=== PATIENT | female | born 1945 | race African-American/Black ===

== ENCOUNTER 2022-01-26 17:14 | Inpatient (IN) ==
[2022-01-26 17:36] LABS: Basophils % 0.5 % (0.0-0.8); Eosinophils # 0.1 10*3/uL (0.0-0.87); Eosinophils % 1.2 % (0.00-10.9); Hematocrit 38.4 VOL% (35.7-47.0); Hemoglobin 12.8 GM/DL (12.0-16.0); Immature Granulocytes % 0.3 %; Immature Granulocytes Absolute 0.02 #; Lymphocytes # 1.7 10*3/uL (1.4-4.0); Lymphocytes % 27.7 % (21.3-54.2); Mean Corpuscular HGB Conc 33.3 GM/DL (32-36); Mean Corpuscular Volume 88.1 FL (87-102); Mean Platelet Volume 9.9 FL (9.6-12.0); Monocytes # 0.5 10*3/uL (0.11-0.8); Monocytes % 8.5 % (1.7-12.7); Neutrophils % 61.8 % (38.7-73.9); Platelet Count 147 T/CUMM (130-400); Red Blood Count 4.36 MC/CUMM (3.8-5.5); Red Cell Distribution Width 13.3 % (9.3-17.3)
[2022-01-26 17:59] LABS: Alanine Aminotransferase 25 U/L (13-56); Albumin 3.8 G/DL (3.4-5.0); Alkaline Phosphatase 81 U/L (45-117); Aspartate Amino Transferase 36 U/L (0-37); Bilirubin,Total < 0.39 MG/DL (0.20-1.00); Blood Urea Nitrogen 19 MG/DL (7-18); Calcium 9.4 MG/DL (8.5-10.1); Carbon Dioxide 22 MMOL/L (21-32); Chloride 108 MMOL/L (98-107); Glucose 221 MG/DL (74-106); Osmolality,Calculated 283.7 MOS/KG (273-304); Potassium 3.7 MMOL/L (3.5-5.1); Sodium 138 MMOL/L (136-145); Total Protein 8.5 G/DL (6.4-8.2)
[2022-01-26] MEDS ORDERED: ASPIRIN EC 325 MG TABLET PO STA (18:36)
[2022-01-26] MEDS ORDERED: ENOXAPARIN 100 MG/ML SYRINGE SUBCUT STA (18:36)
[2022-01-26 19:55] LABS: Platelet Estimate Normal
[2022-01-27] MEDS ORDERED: ONDANSETRON 4 MG/2 ML VIAL IV PRN (00:22)
[2022-01-27] MEDS ORDERED: ACETAMINOPHEN 325 MG TABLET PO PRN (00:22)
[2022-01-27] MEDS ORDERED: MORPHINE 2 MG/1 ML SYRINGE IV PRN (00:22)
[2022-01-27] MEDS: SODIUM CHLORIDE 0.9% 1,000 ML IV SCH ×2 (01:23→12:56)
[2022-01-27] MEDS: NITROGLYCERIN 2% OINT 1 INCH/GM PACK TOP SCH ×3 (01:33→12:20)
[2022-01-27] MEDS: DOCUSATE SODIUM 100 MG CAPSULE PO SCH ×3 (01:33→20:39)
[2022-01-27 04:26] LABS: Basophils % 0.4 % (0.0-0.8); Eosinophils # 0.1 10*3/uL (0.0-0.87); Eosinophils % 0.9 % (0.00-10.9); Hematocrit 36.7 VOL% (35.7-47.0); Hemoglobin 12.1 GM/DL (12.0-16.0); Immature Granulocytes % 0.3 %; Immature Granulocytes Absolute 0.02 #; Lymphocytes # 2.8 10*3/uL (1.4-4.0); Mean Corpuscular Volume 87.6 FL (87-102); Mean Platelet Volume 10.6 FL (9.6-12.0); Monocytes # 0.8 10*3/uL (0.11-0.8); Monocytes % 11.1 % (1.7-12.7); Neutrophils % 46.3 % (38.7-73.9); Platelet Count 132 T/CUMM (130-400); Red Blood Count 4.19 MC/CUMM (3.8-5.5); Red Cell Distribution Width 13.4 % (9.3-17.3); White Blood Count 6.8 T/CUMM (4-12)
[2022-01-27 04:43] LABS: Alanine Aminotransferase 23 U/L (13-56); Albumin 3.2 G/DL (3.4-5.0); Alkaline Phosphatase 63 U/L (45-117); Aspartate Amino Transferase 28 U/L (0-37); Bilirubin,Total < 0.39 MG/DL (0.20-1.00); Blood Urea Nitrogen 15 MG/DL (7-18); Calcium 9.4 MG/DL (8.5-10.1); Carbon Dioxide 23 MMOL/L (21-32); Chloride 110 MMOL/L (98-107); Cholesterol 146 MG/DL (50-200); Glucose 100 MG/DL (74-106); HDL Cholesterol 69 MG/DL (40-60); Osmolality,Calculated 281.3 MOS/KG (273-304); Potassium 3.7 MMOL/L (3.5-5.1); Risk Ratio 2.12; Sodium 141 MMOL/L (136-145); Total Protein 7.3 G/DL (6.4-8.2); Triglycerides 129 MG/DL (2-150); VLDL Cholesterol 25.8 MG/DL
[2022-01-27] MEDS ORDERED: GLUCAGON 1 MG VIAL IM PRN (07:36)
[2022-01-27] MEDS ORDERED: DEXTROSE 10% 250 ML BAG IV PRN (07:36)
[2022-01-27] MEDS: LORATADINE 10 MG TABLET PO SCH (08:07)
[2022-01-27] MEDS: FENOFIBRATE 160 MG TABLET PO SCH (08:07)
[2022-01-27] MEDS: PANTOPRAZOLE 40 MG VIAL IV SCH (08:42)
[2022-01-27] MEDS: METOPROLOL TARTRATE 25 MG TABLET PO SCH ×2 (08:43→20:39)
[2022-01-27] MEDS ORDERED: DIAZEPAM 5 MG TABLET PO ONE (09:00)
[2022-01-27] MEDS ORDERED: ASPIRIN EC 325 MG TABLET PO SCH (09:00)
[2022-01-27] MEDS ORDERED: diphenhydrAMINE CAP 25 MG CAPSULE PO ONE (09:00)
[2022-01-27] MEDS ORDERED: ENOXAPARIN 80 MG/0.8 ML SYRINGE SUBCUT SCH (09:00)
[2022-01-27] MEDS: INSULIN LISPRO 100 UNIT/ML SUBCUT SCH ×3 (10:55→20:37)
[2022-01-27] MEDS ORDERED: HEPARIN/NACL 0.9% 2 UNITS/ML 2,000 UNIT/1,000 ML BAG IV ONE (11:01)
[2022-01-27] MEDS ORDERED: fentaNYL 100 MCG/2 ML VIAL ONE (11:20)
[2022-01-27] MEDS ORDERED: MIDAZOLAM 2 MG/2 ML VIAL ONE (11:20)
[2022-01-27] MEDS ORDERED: ACETAMINOPHEN/CODEINE 300-30 MG TABLET PO PRN (11:54)
[2022-01-27] MEDS ORDERED: NITROGLYCERIN SL 0.4 MG TABLET SL PRN (11:54)
[2022-01-27] MEDS: cefTRIAXone 1,000 MG in SODIUM CHLORIDE 0.9% 100 ML IV SCH (13:57)
[2022-01-27] MEDS: ATORVASTATIN 40 MG TABLET PO SCH (20:39)
[2022-01-27] MEDS: APIXABAN 5 MG TABLET PO SCH (20:39)
[2022-01-28] MEDS: SODIUM CHLORIDE 0.9% 1,000 ML IV SCH ×2 (03:20→17:31)
[2022-01-28 05:16] LABS: Basophils % 0.5 % (0.0-0.8); Eosinophils # 0.2 10*3/uL (0.0-0.87); Eosinophils % 2.7 % (0.00-10.9); Hematocrit 34.7 VOL% (35.7-47.0); Hemoglobin 11.6 GM/DL (12.0-16.0); Immature Granulocytes % 0.3 %; Immature Granulocytes Absolute 0.02 #; Lymphocytes # 2.3 10*3/uL (1.4-4.0); Lymphocytes % 30.4 % (21.3-54.2); Mean Corpuscular HGB Conc 33.4 GM/DL (32-36); Mean Corpuscular Volume 89.2 FL (87-102); Mean Platelet Volume 10.9 FL (9.6-12.0); Monocytes # 0.7 10*3/uL (0.11-0.8); Monocytes % 9.1 % (1.7-12.7); Platelet Count 142 T/CUMM (130-400); Red Blood Count 3.89 MC/CUMM (3.8-5.5); Red Cell Distribution Width 13.4 % (9.3-17.3); White Blood Count 7.5 T/CUMM (4-12)
[2022-01-28 05:26] LABS: Calcium 8.6 MG/DL (8.5-10.1); Osmolality,Calculated 286.1 MOS/KG (273-304); Potassium 4.3 MMOL/L (3.5-5.1)
[2022-01-28] MEDS: INSULIN LISPRO 100 UNIT/ML SUBCUT SCH ×4 (08:17→20:33)
[2022-01-28] MEDS ORDERED: INFLUENZA VIRUS VACCINE 0.5 ML SYRINGE IM ONE (09:00)
[2022-01-28] MEDS ORDERED: ASPIRIN EC 81 MG TABLET PO SCH (09:00)
[2022-01-28] MEDS ORDERED: CLOPIDOGREL 75 MG TABLET PO SCH (09:00)
[2022-01-28] MEDS ORDERED: ISOSORBIDE MONONITRATE 30 MG TABLET PO SCH (09:00)
[2022-01-28] MEDS: METOPROLOL TARTRATE 25 MG TABLET PO SCH (09:14)
[2022-01-28] MEDS: LORATADINE 10 MG TABLET PO SCH (09:14)
[2022-01-28] MEDS: DOCUSATE SODIUM 100 MG CAPSULE PO SCH ×2 (09:15→20:33)
[2022-01-28] MEDS: FENOFIBRATE 160 MG TABLET PO SCH (09:15)
[2022-01-28] MEDS: APIXABAN 5 MG TABLET PO SCH ×2 (09:15→20:33)
[2022-01-28] MEDS: PANTOPRAZOLE 40 MG VIAL IV SCH (09:20)
[2022-01-28] MEDS ORDERED: diphenhydrAMINE CAP 50 MG CAPSULE PO ONE (11:02)
[2022-01-28] MEDS ORDERED: DIAZEPAM 5 MG TABLET PO ONE (11:02)
[2022-01-28] MEDS ORDERED: HEPARIN/NACL 0.9% 2 UNITS/ML 2,000 UNIT/1,000 ML BAG IV ONE (11:25)
[2022-01-28] MEDS ORDERED: fentaNYL 100 MCG/2 ML VIAL ONE (11:39)
[2022-01-28] MEDS ORDERED: MIDAZOLAM 2 MG/2 ML VIAL ONE ×2 (11:39→12:27)
[2022-01-28] MEDS ORDERED: ATROPINE 1 MG/10 ML SYRINGE ONE (14:30)
[2022-01-28] MEDS ORDERED: methylPREDNISolone SOD SUC 125 MG/2 ML VIAL ONE (14:32)
[2022-01-28] MEDS ORDERED: FAMOTIDINE 20 MG/2 ML VIAL IV ONE (14:33)
[2022-01-28] MEDS ORDERED: ATROPINE 1 MG/10 ML SYRINGE IV ONE (14:34)
[2022-01-28] MEDS: methylPREDNISolone SOD SUC 125 MG/2 ML VIAL IV SCH (14:35)
[2022-01-28] MEDS ORDERED: SODIUM CHLORIDE 0.9% 500 ML IV ONE (14:35)
[2022-01-28] MEDS: FAMOTIDINE 20 MG/2 ML VIAL IV SCH (14:37)
[2022-01-28] MEDS: cefTRIAXone 1,000 MG in SODIUM CHLORIDE 0.9% 100 ML IV SCH ×2 (15:30→17:30)
[2022-01-28 16:30] LABS: Basophils % 0.2 % (0.0-0.8); Eosinophils # 0.1 10*3/uL (0.0-0.87); Eosinophils % 0.8 % (0.00-10.9); Hematocrit 34.1 VOL% (35.7-47.0); Immature Granulocytes % 0.3 %; Immature Granulocytes Absolute 0.03 #; Lymphocytes # 1.5 10*3/uL (1.4-4.0); Lymphocytes % 17.1 % (21.3-54.2); Mean Corpuscular HGB Conc 32.3 GM/DL (32-36); Mean Corpuscular Volume 90.7 FL (87-102); Mean Platelet Volume 10.9 FL (9.6-12.0); Monocytes # 0.5 10*3/uL (0.11-0.8); Monocytes % 5.6 % (1.7-12.7); Platelet Count 140 T/CUMM (130-400); Red Blood Count 3.76 MC/CUMM (3.8-5.5); Red Cell Distribution Width 13.4 % (9.3-17.3); White Blood Count 8.8 T/CUMM (4-12)
[2022-01-28 16:44] LABS: Calcium 8.5 MG/DL (8.5-10.1); Osmolality,Calculated 277.7 MOS/KG (273-304); Potassium 4.2 MMOL/L (3.5-5.1)
[2022-01-28] MEDS: ATORVASTATIN 40 MG TABLET PO SCH (20:33)
[2022-01-29] MEDS: methylPREDNISolone SOD SUC 125 MG/2 ML VIAL IV SCH (03:40)
[2022-01-29] MEDS: FAMOTIDINE 20 MG/2 ML VIAL IV SCH (03:47)
[2022-01-29 04:23] LABS: Basophils % 0.2 % (0.0-0.8); Hematocrit 30.6 VOL% (35.7-47.0); Hemoglobin 10.2 GM/DL (12.0-16.0); Immature Granulocytes % 0.5 %; Immature Granulocytes Absolute 0.03 #; Lymphocytes # 1.4 10*3/uL (1.4-4.0); Lymphocytes % 21.8 % (21.3-54.2); Mean Corpuscular HGB Conc 33.3 GM/DL (32-36); Mean Corpuscular Volume 88.4 FL (87-102); Mean Platelet Volume 10.6 FL (9.6-12.0); Monocytes # 0.6 10*3/uL (0.11-0.8); Monocytes % 10.2 % (1.7-12.7); Neutrophils % 67.3 % (38.7-73.9); Platelet Count 150 T/CUMM (130-400); Red Blood Count 3.46 MC/CUMM (3.8-5.5); Red Cell Distribution Width 13.3 % (9.3-17.3); White Blood Count 6.2 T/CUMM (4-12)
[2022-01-29 04:40] LABS: Calcium 8.5 MG/DL (8.5-10.1); Osmolality,Calculated 283.5 MOS/KG (273-304); Potassium 4.5 MMOL/L (3.5-5.1)
[2022-01-29] MEDS: INSULIN LISPRO 100 UNIT/ML SUBCUT SCH ×4 (07:37→21:34)
[2022-01-29] MEDS: SODIUM CHLORIDE 0.9% 1,000 ML IV SCH (08:33)
[2022-01-29] MEDS ORDERED: BRIMONIDINE 0.15% OPH SOLN 1 DROP/DROPS BOTTLE BOTH EYES SCH (09:00)
[2022-01-29] MEDS: DOCUSATE SODIUM 100 MG CAPSULE PO SCH ×2 (09:08→21:27)
[2022-01-29] MEDS: APIXABAN 5 MG TABLET PO SCH ×2 (09:08→21:27)
[2022-01-29] MEDS: FENOFIBRATE 160 MG TABLET PO SCH (09:08)
[2022-01-29] MEDS: LORATADINE 10 MG TABLET PO SCH (09:08)
[2022-01-29] MEDS: PANTOPRAZOLE 40 MG VIAL IV SCH (09:09)
[2022-01-29] MEDS: cefTRIAXone 1,000 MG in SODIUM CHLORIDE 0.9% 100 ML IV SCH (16:52)
[2022-01-29] MEDS: BRIMONIDINE 0.15% OPH SOLN 1 DROP/DROPS BOTTLE BOTH EYES SCH ×2 (16:54→21:33)
[2022-01-29] MEDS: ATORVASTATIN 40 MG TABLET PO SCH (21:27)
[2022-01-29] MEDS: TRAVOPROST 0.004% OPH SOLN 2.5 ML BOTTLE BOTH EYES SCH ×2 (21:34)
[2022-01-30 08:04] LABS: Basophils % 0.3 % (0.0-0.8); Eosinophils % 0.4 % (0.00-10.9); Hematocrit 26.5 VOL% (35.7-47.0); Immature Granulocytes % 0.2 %; Immature Granulocytes Absolute 0.02 #; Lymphocytes # 2.8 10*3/uL (1.4-4.0); Mean Corpuscular HGB Conc 33.6 GM/DL (32-36); Mean Platelet Volume 10.8 FL (9.6-12.0); Monocytes # 0.7 10*3/uL (0.11-0.8); Monocytes % 7.3 % (1.7-12.7); Neutrophils % 63.8 % (38.7-73.9); Platelet Count 147 T/CUMM (130-400); Red Blood Count 3.01 MC/CUMM (3.8-5.5); Red Cell Distribution Width 13.6 % (9.3-17.3); White Blood Count 10.2 T/CUMM (4-12)
[2022-01-30 08:09] LABS: Hemoglobin 8.9 GM/DL (12.0-16.0)
[2022-01-30 08:24] LABS: Calcium 8.8 MG/DL (8.5-10.1); Osmolality,Calculated 289.8 MOS/KG (273-304); Potassium 3.9 MMOL/L (3.5-5.1)
[2022-01-30] MEDS: INSULIN LISPRO 100 UNIT/ML SUBCUT SCH ×4 (08:47→21:57)
[2022-01-30] MEDS: FENOFIBRATE 160 MG TABLET PO SCH (08:55)
[2022-01-30] MEDS: APIXABAN 5 MG TABLET PO SCH ×2 (08:55→22:13)
[2022-01-30] MEDS: LORATADINE 10 MG TABLET PO SCH (08:55)
[2022-01-30] MEDS: DOCUSATE SODIUM 100 MG CAPSULE PO SCH ×2 (08:56→22:14)
[2022-01-30] MEDS: PANTOPRAZOLE 40 MG VIAL IV SCH (08:56)
[2022-01-30] MEDS: BRIMONIDINE 0.15% OPH SOLN 1 DROP/DROPS BOTTLE BOTH EYES SCH ×4 (08:57→22:15)
[2022-01-30] MEDS: METOPROLOL TARTRATE 25 MG TABLET PO SCH ×2 (10:58→22:13)
[2022-01-30] MEDS ORDERED: FUROSEMIDE 20 MG/2 ML VIAL IV ONE (11:17)
[2022-01-30] MEDS: cefTRIAXone 1,000 MG in SODIUM CHLORIDE 0.9% 100 ML IV SCH (16:17)
[2022-01-30] MEDS: TRAVOPROST 0.004% OPH SOLN 2.5 ML BOTTLE BOTH EYES SCH ×2 (22:12→22:15)
[2022-01-30] MEDS: ATORVASTATIN 40 MG TABLET PO SCH (22:14)
[2022-01-31 04:43] LABS: Basophils # 0.1 10*3/uL (0.0-0.2); Basophils % 0.5 % (0.0-0.8); Eosinophils # 0.2 10*3/uL (0.0-0.87); Eosinophils % 1.8 % (0.00-10.9); Hematocrit 27.3 VOL% (35.7-47.0); Hemoglobin 9.2 GM/DL (12.0-16.0); Immature Granulocytes % 0.4 %; Immature Granulocytes Absolute 0.04 #; Lymphocytes # 2.7 10*3/uL (1.4-4.0); Lymphocytes % 25.4 % (21.3-54.2); Mean Corpuscular HGB Conc 33.7 GM/DL (32-36); Mean Corpuscular Volume 87.8 FL (87-102); Mean Platelet Volume 10.1 FL (9.6-12.0); Monocytes # 0.8 10*3/uL (0.11-0.8); Monocytes % 7.3 % (1.7-12.7); Neutrophils % 64.6 % (38.7-73.9); Platelet Count 174 T/CUMM (130-400); Red Blood Count 3.11 MC/CUMM (3.8-5.5); Red Cell Distribution Width 13.5 % (9.3-17.3); White Blood Count 10.7 T/CUMM (4-12)
[2022-01-31 05:00] LABS: Calcium 8.6 MG/DL (8.5-10.1); Osmolality,Calculated 282.4 MOS/KG (273-304); Potassium 3.8 MMOL/L (3.5-5.1)
[2022-01-31] MEDS: INSULIN LISPRO 100 UNIT/ML SUBCUT SCH ×4 (09:43→22:31)
[2022-01-31] MEDS: DOCUSATE SODIUM 100 MG CAPSULE PO SCH ×2 (09:44→22:31)
[2022-01-31] MEDS: LORATADINE 10 MG TABLET PO SCH (09:44)
[2022-01-31] MEDS: APIXABAN 5 MG TABLET PO SCH ×2 (09:44→22:31)
[2022-01-31] MEDS: METOPROLOL TARTRATE 25 MG TABLET PO SCH ×2 (09:44→22:30)
[2022-01-31] MEDS: PANTOPRAZOLE 40 MG VIAL IV SCH (09:44)
[2022-01-31] MEDS: BRIMONIDINE 0.15% OPH SOLN 1 DROP/DROPS BOTTLE BOTH EYES SCH ×4 (09:44→22:38)
[2022-01-31] MEDS: FENOFIBRATE 160 MG TABLET PO SCH (09:46)
[2022-01-31] MEDS: cefTRIAXone 1,000 MG in SODIUM CHLORIDE 0.9% 100 ML IV SCH (16:47)
[2022-01-31] MEDS: ATORVASTATIN 40 MG TABLET PO SCH (22:30)
[2022-01-31] MEDS: TRAVOPROST 0.004% OPH SOLN 2.5 ML BOTTLE BOTH EYES SCH ×2 (22:31→22:32)
[2022-02-01] MEDS: APIXABAN 5 MG TABLET PO SCH (09:10)
[2022-02-01] MEDS: DOCUSATE SODIUM 100 MG CAPSULE PO SCH (09:10)
[2022-02-01] MEDS: FENOFIBRATE 160 MG TABLET PO SCH (09:10)
[2022-02-01] MEDS: LORATADINE 10 MG TABLET PO SCH (09:10)
[2022-02-01] MEDS: INSULIN LISPRO 100 UNIT/ML SUBCUT SCH ×2 (09:11→15:00)
[2022-02-01] MEDS: METOPROLOL TARTRATE 25 MG TABLET PO SCH (09:11)
[2022-02-01] MEDS: BRIMONIDINE 0.15% OPH SOLN 1 DROP/DROPS BOTTLE BOTH EYES SCH ×2 (09:12→10:51)
[2022-02-01] MEDS: PANTOPRAZOLE 40 MG VIAL IV SCH (09:12)
[2022-02-01 12:19] VITALS: BP 125/66
[2022-02-03] MEDS ORDERED: APIXABAN 5 MG TABLET PO SCH (21:00)
== END 2022-02-01 17:19 | disposition home or self-care (01) | DRG 163 ==
LOC: N.EDINP 17:14 → N.ED 17:14 → SUATTDRO 19:25 → N.EDINP 23:10 → N.TELES 23:14 → N.ICU 01-28 15:31 → N.TELES 01-29 18:05
PROVIDERS: ADMIT Internal Medicine; ATTEND Internal Medicine
PROC: CLCCHCL (ICD-10-PCS; 2022-01-27 12:15)